=== PATIENT | male | born 1940 | race Caucasian/White ===

== ENCOUNTER 2018-08-16 10:07 | Emergency (ER) | payer MEDICARE, BC ==
[2018-08-16] MEDS: Aspirin 81 MG Tab.Chew PO ONE (10:10)
--- NOTE | 2018-08-16 11:09 | EDM.PDOC ---
ED HPI GENERAL MEDICAL PROBLEM - General Chief Complaint: Chest Pain Stated Complaint: CP Time Seen by Provider: 08/16/18 10:15 Source of Information: Reports: Patient History Limitations: Reports: No Limitations - History of Present Illness INITIAL COMMENTS - FREE TEXT/NARRATIVE: Patient presents to ER with complaints of acute chest pain. States had been working earlier this am, pulling on machinery and did fine. Was resting when developed acute chest pain. Took 2 nitro at home. Questions if he took the first one right as it didn't seem to help and he didn't have it under his tongue. Second dose helped reduce his pain from a 20 to a 2 but felt dizzy after. On presentation, pain is in the lower sternal area, but at a 2. He has a strong cardiac history. Had 3 vessel bypass several years ago, 2 stents placed 1 year ago. He denies any shortness of breath or diaphoresis. No nausea. Relates that he had a similar episode 3 weeks ago that resolved with 15 minutes of rest. Had a cardiolyte stress test done a month ago in [place] that he reports was normal. Onset: Today, Sudden Duration: Minutes: Location: Reports: Chest Quality: Reports: Sharp Severity: Severe Improves with: Reports: Medication Associated Symptoms: Reports: Chest Pain. Denies: Confusion, Cough, Fever/ Chills, Loss of Appetite, Nausea/Vomiting, Shortness of Breath, Weakness Middle Chest Pain Score (Numeric/FACES): 2 - Related Data Allergies Allergy/AdvReac Type Severity Reaction Status Date / Time No Known Allergies Allergy Verified 08/16/18 10:22 Home Meds: Home Meds Cholecalciferol (Vitamin D3) [Vitamin D3] 2,000 unit PO BID 12/15/15 [History] Levothyroxine 125 mcg PO QPM 12/15/15 [History] Lisinopril 5 mg PO QPM 12/15/15 [History] Simvastatin [Zocor] 80 mg PO QPM 12/15/15 [History] Vitamin E 400 unit PO DAILY 12/15/15 [History] Ascorbic Acid [Vitamin C] 1,000 mg PO DAILY 12/19/15 [History] Aspirin 81 mg PO DAILY 12/19/15 [History] Calcium/Magnesium/Zinc [Calcium & Magnesium plus Zinc] 1 tab PO DAILY 12/19/15 [ History] glipiZIDE [Glipizide] 5 mg PO QPM 01/03/16 [History] metFORMIN HCl [Metformin ER Osmotic] 1,000 mg PO BID 01/03/16 [History] Multivitamin [Daily Multiple Vitamin] 1 ea PO DAILY 04/29/17 [History] Clopidogrel Bisulfate [Clopidogrel] 75 mg PO DAILY 09/03/17 [History] Nitroglycerin 0.4 mg SL ASDIRECTED PRN 09/03/17 [History] Acetaminophen [Tylenol Extra Strength] 1,000 mg PO BID 08/16/18 [History] Past Medical History - Past Health History Medical/Surgical History: Denies Medical/Surgical History HEENT History: Reports: Hard of Hearing Cardiovascular History: Reports: High Cholesterol, Hypertension Other Cardiovascular History: has had some cp since his stents. He said that when he uses a broom in the [employer] shop, he has cp; sometimes it has happened at rest. usually it goes away after 5 min. He saw the electrical contacts adjuster a few weeks ago--she encouraged him to do cardiac rehab and to avoid using the broom when at the shop. Started with chest pressure, saw Dr. Lacey, had a stress test, then sent to electrical contacts adjuster. 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 Other Musculoskeletal History: has had back, knee and hip problems; had a jaw injury and said his facial area is still numb Endocrine/Metabolic History: Reports: Diabetes, Type II, Hypothyroidism - Past Surgical History Cardiovascular Surgical History: Reports: Other (See Below) Social & Family History - Tobacco Use Smoking Status *Q: Never Smoker - Caffeine Use Caffeine Use: Reports: None - Recreational Drug Use Recreational Drug Use: No ED ROS GENERAL - Review of Systems Review Of Systems: See Below Constitutional: Denies: Fever, Chills, Malaise, Weakness, Decreased Appetite HEENT: Denies: Ear Pain, Rhinitis, Sinus Problem, Throat Pain Respiratory: Denies: Shortness of Breath, Wheezing, Cough Cardiovascular: Reports: Chest Pain. Denies: Edema, Lightheadedness Endocrine: Denies: Fatigue GI/Abdominal: Denies: Abdominal Pain, Nausea, Vomiting : Reports: No Symptoms Musculoskeletal: Reports: No Symptoms Skin: Reports: No Symptoms Neurological: Reports: No Symptoms ED EXAM, GENERAL - Physical Exam Exam: See Below Exam Limited By: No Limitations General Appearance: Alert, WD/WN, No Apparent Distress Ears: Normal External Exam, Normal TMs Nose: Normal Inspection, Normal Mucosa, No Blood Throat/Mouth: Normal Inspection, Normal Oropharynx Head: Normocephalic Neck: Normal Inspection, Supple, Non-Tender Respiratory/Chest: No Respiratory Distress, Lungs Clear, Normal Breath Sounds Cardiovascular: Regular Rate, Rhythm Extremities: Normal Inspection, Normal Capillary Refill Neurological: Alert, Oriented Skin Exam: Warm, Dry Course - Vital Signs Last Recorded V/S: Last Vital Signs Temp 98.3 F 08/16/18 13:33 Pulse 65 08/16/18 13:33 Resp 16 08/16/18 13:33 BP 113/60 08/16/18 13:33 Pulse Ox 95 08/16/18 13:33 - Orders/Labs/Meds Orders: Active Orders 24 hr Category Date Time Status Oxygen Therapy, ED [RC] ASDIRECTED Care 08/16/18 10:38 Active Chest 2V [CR] Routine Exams 08/16/18 Taken Heparin Sodium/D5W [Heparin 25,000 Units in D5W 500 ML] Med 08/16/18 16:00 Active 25,000 units in 500 ml IV TITRATE Medication Orders Heparin Sodium/Dextrose (Heparin 25,000 Units In D5w 500 Ml) 25,000 units in 500 mls @ 20 mls/hr IV TITRATE ELISABET; Protocol Last Admin: 08/16/18 16:28 Dose: 1,000 units/hr, 20 mls/hr Labs: Laboratory Tests 08/16/18 08/16/18 08/16/18 Range/Units 10:20 10:20 10:20 WBC 9.0 (5.0-10.0) 10^3/uL RBC 4.63 (4.50-6.00) 10^6/uL Hgb 13.8 L (14.0-18.0) g/dL Hct 43.1 (40.0-54.0) % MCV 93.1 (82.0-94.0) fL MCH 29.8 (27.0-32.0) pg MCHC 32.0 L (33.0-38.0) g/dL RDW Coeff of Yoseph 13.6 (11.0-15.0) % Plt Count 277 (150-400) 10^3/uL Neut % (Auto) 74.1 (35-85) % Lymph % (Auto) 19.8 (10-55) % Hernando % (Auto) 5.3 (0-16) % Eos % (Auto) 0.6 (0-5) % Baso % (Auto) 0.2 (0-3) % Neut # (Auto) 6.64 (1.80-7.00) 10^3/uL Lymph # (Auto) 1.77 (1.00-4.80) 10^3/uL Hernando # (Auto) 0.47 (0.00-0.80) 10^3/uL Eos # (Auto) 0.05 (0.00-0.45) 10^3/uL Baso # (Auto) 0.02 10^3/uL PT 10.1 (9.7-12.3) SEC INR 0.98 (0.92-1.18) APTT 23.1 L (23.2-32.3) SEC Sodium 142 (136-145) mEq/L Potassium 4.6 (3.5-5.0) mEq/L Chloride 104 (98-106) mEq/L Carbon Dioxide 28 (21-32) mmol/L BUN 27 H (7-18) mg/dL Creatinine 1.4 H (0.7-1.3) mg/dL Est Cr Clr Drug Dosing 37.59 mL/min Estimated GFR (MDRD) 49 L (>=60) mL/min Glucose 216 H D (75-99) mg/dL Calcium 9.9 (8.4-10.1) mg/dL Total Bilirubin 0.5 (0.0-1.0) mg/dL AST 15 (15-37) U/L ALT 18 (12-78) U/L Alkaline Phosphatase 63 (46-116) U/L Lactate Dehydrogenase 145 (100-190) U/L Creatine Kinase 66 (35-232) U/L Troponin I 0.052 (0.00-0.06) ng/mL Total Protein 7.6 (6.4-8.2) g/dL Albumin 4.0 (3.4-5.0) g/dL 08/16/18 Range/Units 15:21 WBC (5.0-10.0) 10^3/uL RBC (4.50-6.00) 10^6/uL Hgb (14.0-18.0) g/dL Hct (40.0-54.0) % MCV (82.0-94.0) fL MCH (27.0-32.0) pg MCHC (33.0-38.0) g/dL RDW Coeff of Yoseph (11.0-15.0) % Plt Count (150-400) 10^3/uL Neut % (Auto) (35-85) % Lymph % (Auto) (10-55) % Hernando % (Auto) (0-16) % Eos % (Auto) (0-5) % Baso % (Auto) (0-3) % Neut # (Auto) (1.80-7.00) 10^3/uL Lymph # (Auto) (1.00-4.80) 10^3/uL Hernando # (Auto) (0.00-0.80) 10^3/uL Eos # (Auto) (0.00-0.45) 10^3/uL Baso # (Auto) 10^3/uL PT (9.7-12.3) SEC INR (0.92-1.18) APTT (23.2-32.3) SEC Sodium (136-145) mEq/L Potassium (3.5-5.0) mEq/L Chloride (98-106) mEq/L Carbon Dioxide (21-32) mmol/L BUN (7-18) mg/dL Creatinine (0.7-1.3) mg/dL Est Cr Clr Drug Dosing mL/min Estimated GFR (MDRD) (>=60) mL/min Glucose (75-99) mg/dL Calcium (8.4-10.1) mg/dL Total Bilirubin (0.0-1.0) mg/dL AST (15-37) U/L ALT (12-78) U/L Alkaline Phosphatase (46-116) U/L Lactate Dehydrogenase (100-190) U/L Creatine Kinase (35-232) U/L Troponin I 1.033 H (0.00-0.06) ng/mL Total Protein (6.4-8.2) g/dL Albumin (3.4-5.0) g/dL Meds: Medications Generic Name Dose Route Start Last Admin Trade Name Freq PRN Reason Stop Dose Admin Heparin Sodium/Dextrose 25,000 units in 500 mls @ 20 mls/hr 08/16/18 16:00 16:28 Heparin 25,000 Units In D5w 500 Ml IV 1,000 units/hr TITRATE ELISABET 20 mls/hr Administration Protocol 1,000 UNITS/HR Discontinued Medications Generic Name Dose Route Start Last Admin Trade Name Good PRN Reason Stop Dose Admin Aspirin 324 mg 08/16/18 10:10 08/16/18 10:10 Aspirin PO 08/16/18 10:11 324 mg ONETIME ONE Administration Heparin Sodium (Porcine) Confirm 08/16/18 16:17 08/16/18 16:30 Heparin Sodium Administered 08/16/18 16:18 Not Given Dose 5,000 units .ROUTE .STK-MED ONE Heparin Sodium (Porcine) 5,000 units 08/16/18 16:27 08/16/18 16:29 Heparin Sodium IVPUSH 08/16/18 16:28 5,000 units .BOLUS ONE Administration - Re-Assessments/Exams Free Text/Narrative Re-Assessment/Exam: 08/16/18 1100 Patient's EKG and labs essentially normal at this time. Minimal to no pain now. Will repeat cardiac enzymes at 1500. 1530- Lab results received. Troponin has increased to 1.033. Contact Dr. Montejo at [facility]. Advised to start Heparin drip. Accepted patient in transfer. Did discuss with ericka Guerra. Risks and benefits of transfer discussed with patient and family. Risks of transfer include worsening status, vehicle crash and even . Benefits of transfer include more specialized cardiac care. Risks of non transfer include worsening status and potential . Benefits of non transfer include care close to home. Patient agrees to accept patient in transfer. Departure - Departure Time of Disposition: 17:29 Disposition: DC/Tfer to Acute Hospital 02 Reason for Transfer *Q: Other Condition: Undetermined Clinical Impression: Acute myocardial infarction Forms: ED Department Discharge Additional Instructions: Transfer to Dr. Montejo at [facility] per ALS - My Orders Last 24 Hours: My Active Orders 08/16/18 Chest 2V [CR] Routine 08/16/18 10:38 Oxygen Therapy, ED [RC] ASDIRECTED 08/16/18 16:00 Heparin Sodium/D5W [Heparin 25,000 Units in D5W 500 ML] 25,000 units in 500 ml IV TITRATE - Assessment/Plan Last 24 Hours: My Active Orders 08/16/18 Chest 2V [CR] Routine 08/16/18 10:38 Oxygen Therapy, ED [RC] ASDIRECTED 08/16/18 16:00 Heparin Sodium/D5W [Heparin 25,000 Units in D5W 500 ML] 25,000 units in 500 ml IV TITRATE
[2018-08-16] MEDS: Heparin Sodium/D5W 25,000 UNITS/500 ML BAG IV SCH (16:28)
[2018-08-16] MEDS: Heparin Sodium 10,000 Units/1 ML MDV IVPUSH ONE (16:29)
[2018-08-16 17:34] VITALS: BP 123/57
--- OUTSIDE RECORDS SUMMARY | 2018-08-19 07:50 | XMSREPORT | Summary of Care ---
:[address] [facility] Address [address] [place] [address] Care Team Providers Name Role Phone Yuan Lacey MD Primary Care Provider Provider, No Attributed RESOURCE Attributed Provider Unavailable Reason for Visit Reason Comments Auth/Cert Status Reason Specialty Diagnoses / Procedures Referred By Contact Referred To Contact Encounter Details Date Type Department Care Team Description 08/16/2018 - Hospital Encounter Provider, Generic Hosp Procedure NSTEMI (non-ST 08/18/2018 CENTER 5A Brenna Brambila MD [address] [place] [address] [phone] elevated myocardial [address] Yariel Olsen MD [address] [place] [address] [phone] infarction) ([facility]) [place] [address] Allergies No Known Allergiesdocumented as of this encounter (statuses as of 08/18/2018) Medications Medication Sig Dispensed Refills Start Date End Date Status [id number] Take 1 tablet by 0 Active INC PO mouth 1 time per day levothyroxine 125 Take 125 mcg by 0 Active mcg tablet mouth 1 time per day. lisinopril Take 5 mg by 0 Active (PRINIVIL, ZESTRIL) mouth 1 time per 5 mg tablet day. vitamin C (ASCORBIC Take 250 mg by 0 Active ACID) 250 MG CHEW mouth 1 time per day vitamin D3, Take 1,000 Units 0 Active cholecalciferol, by mouth 1 time 1000 units tablet per day vitamin E 100 UNITS Take 100 Units 0 Active capsule by mouth 2 times a day metFORMIN Take 1,000 mg by 0 Active (GLUCOPHAGE XR) 500 mouth 2 times a mg extended release day tablet glipiZIDE Take 5 mg by 0 Active (GLUCOTROL) 5 mg mouth 1 time a tablet day with breakfast MISC NATURAL Arthroquill for 0 Active PRODUCTS PO joints: 1 tablet by mouth twice a day Multiple Take 1 tablet by 0 Active Vitamins-Minerals mouth 1 time per (CENTRUM ADULTS PO) day aspirin 81 mg Take 81 mg by 0 Active enteric coated mouth 1 time per tablet day acetaminophen Take 1,000 mg by 0 Active (TYLENOL) 500 mg mouth 2 times a tablet day atorvaSTATin Take 1 tablet 90 tablet 4 08/18/2018 Active (LIPITOR) 40 mg (40 mg) by mouth 0 tabletIndications: every night at NSTEMI (non-ST bedtime elevated myocardial infarction) ([facility]) metoprolol tartrate Take 1 tablet 30 tablet 1 08/18/2018 Active (LOPRESSOR) 25 mg (25 mg) by mouth 0 tabletIndications: 2 times a day NSTEMI (non-ST elevated myocardial infarction) ([facility]) ticagrelor Take 1 tablet 60 tablet 11 08/19/2018 Active (BRILINTA) 90 mg (90 mg) by mouth tabletIndications: 2 times a day NSTEMI (non-ST elevated myocardial infarction) ([facility]) nitroglycerin DISSOLVE 1 25 tablet 3 08/18/2018 Active (NITROSTAT) 0.4 mg TABLET UNDER sublingual TONGUE EVERY 5 tabletIndications: MINUTES Stented coronary NEEDED FOR CHEST artery PAIN - MAX OF 3 DOSES simvastatin (ZOCOR) Take 80 mg by 0 Discontinued 80 mg tablet mouth every 9 night at bedtime. clopidogrel Take 1 tablet 90 tablet 4 05/10/2018 Discontinued (PLAVIX) 75 mg (75 mg) by mouth 9 tabletIndications: 1 time per day Stented coronary artery nitroglycerin DISSOLVE 1 25 tablet 3 08/08/2018 Discontinued (NITROSTAT) 0.4 mg TABLET UNDER 9 sublingual TONGUE EVERY 5 tabletIndications: MINUTES Stented coronary NEEDED FOR CHEST artery PAIN - MAX OF 3 DOSES metoprolol tartrate Take 0.5 tablets 30 tablet 1 08/18/2018 Discontinued (LOPRESSOR) 25 mg (12.5 mg) by 9 tabletIndications: mouth 2 times a NSTEMI (non-ST day elevated myocardial infarction) ([facility]) documented as of this encounter (statuses as of 08/18/2018) Active Problems Problem Noted Date NSTEMI (non-ST elevated myocardial infarction) 08/18/2018 Mixed hyperlipidemia 08/11/2017 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 Diabetes type 2, controlled 12/19/2015 Otitis externa of left ear 12/19/2015 Acute respiratory failure with hypoxia 12/17/2015 Chest wall contusion 12/16/2015 Dysphagia 12/16/2015 Head injury due to trauma 12/15/2015 Osteoarthritis of both knees 08/14/2013 Arthropathy 08/14/2013 Overview: Bilateral shoulders Osteoarthritis of both knees 03/02/2013 documented as of this encounter (statuses as of 08/18/2018) Social History Tobacco Use Types Packs/Day Years Used Date Never Smoker Smokeless Tobacco: Never Used Alcohol Use Drinks/Week oz/Week Comments No Sexually Active Control Partners Comments Not Currently Sex Assigned at Date Recorded Not on file Job Start Date Occupation Industry Not on file Not on file Not on file Travel History Travel Start Travel End No recent travel history available. documented as of this encounter Last Filed Vital Signs Vital Sign Reading Time Taken Blood Pressure 132/80 08/18/2018 7:48 AM CDT Pulse 69 08/18/2018 7:48 AM CDT Temperature 36.9 C (98.5 F) 08/18/2018 7:48 AM CDT Respiratory Rate 18 08/18/2018 7:48 AM CDT Oxygen Saturation 91% 08/18/2018 7:48 AM CDT Inhaled Oxygen Concentration - - Weight 96.3 kg (212 lb 6.4 oz) 08/17/2018 12:34 AM CDT Height 162.6 cm (5' 4") 08/17/2018 12:34 AM CDT Body Mass Index 36.46 08/17/2018 12:34 AM CDT documented in this encounter Functional Status Functional Status Response Date of Assessment Is the person deaf or does he/she have serious difficulty No 08/17/2018 hearing? Is this person blind or does he/she have difficulty No 08/17/2018 seeing even when wearing glasses? Do you have difficulty with walking, balance, climbing No 08/17/2018 stairs, or had a fall in the last 3 months? Does the patient have difficulty dressing or bathing? No 08/17/2018 Because of a physical, mental, or emotional condition; No 08/17/2018 does this person have difficulty doing errands alone such as visiting a doctor's office or shopping? Cognitive Status Response Date of Assessment Because of a physical, mental, or emotional condition; No 08/17/2018 does this person have serious difficulty concentrating, remembering, or making decisions? documented as of this encounter Progress Notes Yariel Harrell MD - 08/17/2018 3:[address] [facility] Assessment/Plan: 1. Non-ST elevation [place] with history of coronary artery disease: Currently on aspirin, beta arnaldo,statin. Cardiology consulted. On heparin drip. Chest pain has resolved. Patient going for coronary angiogram today. 2. Type 2 diabetes mellitus: Continue sliding scale insulin for now. 3. Hypothyroidism: On levothyroxin 4. Dyslipidemia: On Lipitor Disposition: Possible discharge home tomorrow if procedures uneventful DVT prophylaxis: Heparin Class 2obesity Body mass index is 36.46 kg/m. Tobacco abuse: Social History Tobacco Use Smoking Status Never Smoker Smokeless Tobacco Never Used Patient chart, x-rays, EKG, labs, medications reviewed. Chief Complaint: Patient admitted to the hospital on 08/16/2018 with complaints of chest pain Subjective: No acute events reported overnight. Feels his chest pain from yesterday has resolved. ROS: Patient denies any chest pain, dyspnea, abdominal pain, nausea, vomiting, headache or dizziness. Objective: Vital signs in last 24 hours: Vitals: 08/16/18 2300 08/16/18 2331 08/17/18 0034 08/17/18 0828 BP: 145/72 140/80 Pulse: 72 65 Resp: 16 16 Temp: 98.1 F (36.7 C) 98.3 F (36.8 C) SpO2: 92% 92% Weight: 96.3 kg (212 lb 6.4 oz) 96.3 kg (212 lb 6.4 oz) Height: 1.626 m (5' 4") Weight change: Vitals Min/Max Last 24 Hours Vital Signs Min/Max (last 24 hours) Flowsheet Row Name Min Max Temp 98.1 F (36.7 C) 98.3 F (36.8 C) BP: Systolic 132 145 BP: Diastolic 72 84 Pulse 64 72 Resp 16 16 SpO2 90 % 92 % Intake and Output Last 24 Hours No intake/output data recorded. Physical Exam: General Appearance: alert, well appearing, and in no distress Mental Status: oriented to person, place, and time Chest: b/l good air entry, clear to auscultation, no wheezes, rales or rhonchi, symmetric air entry Heart: normal rate, regular rhythm, normal S1, S2, no murmur Abdomen: soft, nontender, nondistended, bowel sounds heard Neurological: normal speech, no gross sensory or motor deficits noted Extremities: No pedal edema, no tenderness Yariel Harrell MD documented in this encounter Plan of Treatment Name Priority Associated Diagnoses Date/Time EKG MARIANA 08/17/2018 6:40 AM CDT EKG STAT 08/17/2018 5:29 PM CDT EKG to be done 3 hours post Routine 08/17/2018 7:45 PM CDT coronary intervention Health Maintenance Due Date Last Done Comments Microalbumin 1940 Ophthalmology Exam 1941 Tetanus Vaccine 02/10/1960 Zoster Vaccine (1 of 2 - 02/10/1992 RZV,Shingrix) [employer] Directive 2007 document Pneumococcal 65yr+ Low/Med Risk (1 2007 of 2 - PCV13) Hemoglobin A1C Every 6 Months 06/17/2016 12/16/2015 Influenza Vaccine (#1) 2018 Lipid Screening 11/09/2018 11/09/2017 Diabetic Foot Exam 08/18/2019 08/17/2018, 08/17/2018, 08/17/2018, Additional history exists documented as of this encounter Implants Implanted Type Area Flipping Machine Operator Device Shelf Model / Identifier Expiration Serial / Lot Date Screw Ti Mtxwave 1.85x6mm N [id number] - [id number] ENT/Den N/A: J[employer]J DEPUY [id number] / Implanted: Qty: 8 on 12/15/2015 by Miguel Brown MD pawel/Luca MANDIBLE SYNTHES / Explanted: Qty: 1 on 02/10/2016 stics Stnt Xience Alpine Rx 3.5x33mm N [id number] Ea ([id number] [id number])-05/12/2017 CORONARY HONEYCUTT [id number] / Implanted: 05/12/2017 by Shawn Camacho MD (Quantity not on file) / [id number] Stnt Resolute [place] Rx 3.5x18mm N [id number] (Aka [id number])-05/12/2017 CORONARY MEDTRONIC [id number] / Implanted: 05/12/2017 by Shawn Camacho MD (Quantity not on file) / [id number] documented as of this encounter Procedures Procedure Name Priority Date/Time Associated Comments Diagnosis COMPLETE BLOOD COUNT Routine 08/18/2018 7:38 Results for this WITHOUT DIFFERENTIAL AM CDT procedure are in the results section. BASIC METABOLIC Routine 08/18/2018 7:38 Results for this PANEL AM CDT procedure are in the results section. GLUCOSE BY METER, Routine 08/18/2018 6:31 Results for this POCT AM CDT procedure are in the results section. GLUCOSE BY METER, Routine 08/17/2018 9:23 Results for this POCT PM CDT procedure are in the results section. GLUCOSE BY METER, Routine 08/17/2018 5:38 Results for this POCT PM CDT procedure are in the results section. ACTIVATED CLOTTING Routine 08/17/2018 4:44 Results for this TIME POCT PM CDT procedure are in the results section. CARDIAC CATH Routine 08/17/2018 4:25 Results for this POSSIBLE ANGIOPLASTY PM CDT procedure are in [employer]PER[employer] the results section. PTT Timed Routine 08/17/2018 1:07 Results for this PM CDT procedure are in the results section. GLUCOSE BY METER, Routine 08/17/2018 11:48 Results for this POCT AM CDT procedure are in the results section. ECHO ADULT COMPLETE Routine 08/17/2018 7:29 Results for this AM CDT procedure are in the results section. GLUCOSE BY METER, Routine 08/17/2018 6:36 Results for this POCT AM CDT procedure are in the results section. PTT Routine 08/17/2018 6:30 Results for this AM CDT procedure are in the results section. TROPONIN I Timed Routine 08/17/2018 4:22 Results for this AM CDT procedure are in the results section. LAB ONLY-COMPLETE Routine 08/16/2018 10:35 Results for this BLOOD COUNT WITH PM CDT procedure are in DIFFERENTIAL the results section. PTT MARIANA 08/16/2018 10:35 Results for this PM CDT procedure are in the results section. TROPONIN I Timed Routine 08/16/2018 10:35 Results for this PM CDT procedure are in the results section. HEPATIC FUNCTION Routine 08/16/2018 10:35 Results for this PANEL PM CDT procedure are in the results section. MAGNESIUM Routine 08/16/2018 10:35 Results for this PM CDT procedure are in the results section. RENAL FUNCTION PANEL Routine 08/16/2018 10:35 Results for this PM CDT procedure are in the results section. COMPLETE BLOOD COUNT Routine 08/16/2018 10:35 Results for this WITH DIFFERENTIAL PM CDT procedure are in the results section. BRAIN NATRIURETIC Routine 08/16/2018 10:35 Results for this PEPTIDE PM CDT procedure are in the results section. documented in this encounter Results BASIC METABOLIC PANEL (08/18/2018 7:38 AM CDT) Glucose 153 (H) 70 - 100 mg/dL [address] BUN 21 6 - 22 mg/dL [address] Creatinine 1.10 0.80 - 1.30 mg/dL [address] BUN/Creatinine Ratio 19.1 10.0 - 25.[address] Sodium 137 135 - 145 meq/L [address] Potassium 4.4 3.5 - 5.3 meq/L [address] Chloride 102 99 - 110 meq/L [place] [id number] CLINIC CO2 24 20 - 29 meq/L [address] Anion Gap with K 15 6 - 20 meq/L [address] Calcium 10.0 8.5 - 10.5 mg/dL [address] Age [address] eGFR Non- 65 >=60 mL/min/1.73m2 [address] eGFR 79 >=60 mL/min/1.73m2 [address] Specimen Blood - Blood Performing Organization Address [facility] Phone Number [address] [place] [phone] COMPLETE BLOOD COUNT WITHOUT DIFFERENTIAL (08/18/2018 7:38 AM CDT) WBC 7.7 4.0 - 11.0 K/uL [address] RBC 4.66 4.40 - 5.80 M/uL [address] Hemoglobin 13.5 13.5 - 17.5 g/dL [address] Hematocrit 42.5 40.0 - 50.0 % [address] MCV 91.2 80.0 - 98.[address] MCH 29.0 25.5 - 34.[address] MCHC 31.8 31.5 - 36.5 g/dL [address] RDW-CV 13.5 11.5 - 15.5 % [address] RDW-SD 44.5 35.5 - 50.[address] Platelet Count 261 140 - 400 K/uL [address] MPV 10.1 8.5 - 12.[address] Specimen Blood - Blood Performing Organization Address [facility] Phone Number [address] [place] [phone] GLUCOSE BY METER, POCT (08/18/2018 6:31 AM CDT)Only the most recent of5 resultswithin the time period is included. Glucose POC 139 (H) 70 - 100 mg/dL [facility] POINT OF CARE TESTING Specimen Blood - Blood Performing Organization Address [facility] Phone Number [facility] POINT OF [address] [place] [phone] CARE TESTING ACTIVATED CLOTTING TIME POCT (08/17/2018 4:44 PM CDT) Activated Clotting Time 197 (H) 100 - 150 Secs [facility] POINT OF CARE TESTING Specimen Blood - Blood Narrative Performed At DEVICE: [id number] [facility] POINT OF CARE TESTING Performing Organization Address City/State/Zipcode Phone Number [facility] POINT OF [address] [place] [address] CARE TESTING Cardiac Cath Possible Angioplasty Stent Filenet Architect - Left; With grafts? Yes (08/17 4:25 PM CDT) Narrative Performed At [facility] Patient: GERARD RODRÍGUEZ [facility] Exam Date:[address] S[address]am Time: 04:25 PM-04:43 PM [place] [address] Department of Interventional Cardiology Cardiac Interventional Report, Diagnostic Heart Catheterization Report : 1940Fluoro Time: 9.1 min. Patient Status:InpatientAge: 78 year(s)Cath Status: Patient Room:[facility] Gender: Male Diagnostic Certifed Refrigeration Operator:MARY MEDRANO MD Extrusion Die Repairer:MARY MEDRANO MD Indication:Angina/ND: myocardial infarction without ST elevation (NSTEMI). Diagnostic Conclusions: - There is significant left main plus triple vessel coronary artery disease Interventional Conclusions: - A successful intervention of the [id number] was performed Interventional Summary SVG graft to First obtuse marginal: A successful Balloon angioplasty was performed, and a NC EUPHORA RX 4.0X20. Procedures Performed: Fluoro 0.1-60 Minutes. Medication/Infusion/Drip. Art Access - R femoral artery* . Selective Lt Coronary Angiography. Selective Rt Coronary Angiography. Selective Saphenous Vein Graft Angio. Selective KRISHNAN Angio. PTCA. Margarita Femoral Artery Injected for Closure Place. Filter Wire. Hemostasis w/ Angioseal. Diagnostic Findings: Coronary Angiography Left Main Left main artery: The segment is large. Distal left main: There is a 90 % stenosis. Left Anterior Descending Left anterior descending artery: The segment is large. The vessel segment is supplied by a patent bypass. There is a 100 % stenosis. Circumflex Circumflex artery: The segment is large. The vessel segment is supplied by a patent bypass. There is a 100 % stenosis. Right Coronary Right coronary artery: The segment is large. The vessel segment is supplied by collaterals. Ostial right coronary artery: There is a 90 % stenosis. Distal right coronary artery: There is a 100 % stenosis. Graft Angiography KRISHNAN graft to Mid left anterior descending: The segment is normal sized, not calcified and not tortuous. Angiography shows patency. SVG graft to First obtuse marginal: The segment is normal sized, not calcified and not tortuous. There is a 70 % in-stent restenosis in the middle 1/3 portion of the segment. SVG graft to Right coronary artery: The segment is normal sized, not calcified and not tortuous. Angiography shows total occlusion. Left Heart Cath Ejection fraction was not calculated. Interventional Findings: Interventional Details SVG graft to First obtuse marginal: A successful Balloon angioplasty was performed using a CATH GUIDE 6FR LAUNCHER JR4.0 during setup, a FILTERWIRE EZ SYSTEM 190CM during setup, and a NC EUPHORA RX 4.0X20 During Procedure. - The inflation pressure was 20 priyanka for the duration of 9.0 seconds. - The inflation pressure was 20 priyanka for the duration of 6.0 seconds. - The inflation pressure was 24 priyanka for the duration of 7.0 seconds. - The inflation pressure was 24 priyanka for the duration of 7.0 seconds. Procedure Narrative: Access Right femoral artery: The puncture site was infiltrated with 9.0 ml of 1% Lidocaine. Vascular access was obtained using modified seldinger technique and a 5F MICROPUNCTURE SET 45-754 was advanced into the vessel. The sheath was exchanged from a 5F MICROPUNCTURE SET 45-754 sheath to a GLIDESHEATH PNCLE TIF TIP 6FR sheath. Hemostasis/Sheath Status: Hemostasis was successful using a sealant (ANGIO- SEAL VASCULAR CLOSURE DEVICE 6F ). Coronary Angiography Left Coronary System: A catheter was positioned into the Vessel Ostium under fluoroscopic guidance. Contrast injections were performed using hand injection. Angiograms were obtained in multiple views. Right Coronary System: A catheter was positioned into the Vessel Ostium under fluoroscopic guidance. Contrast injections were performed using hand injection. Angiograms were obtained in multiple views. Graft Angiography KRISHNAN graft to Mid left anterior descending: A catheter was positioned into the Vessel Origin under fluoroscopic guidance. Contrast injections were performed using hand injection. Angiograms were obtained in multiple views. SVG graft to First obtuse marginal: Contrast injections were performed using hand injection. Angiograms were obtained in multiple views. SVG graft to Right coronary artery: A catheter was positioned into the Vessel Origin under fluoroscopic guidance. Contrast injections were performed using hand injection. Angiograms were obtained in multiple views. Hemodynamic Impressions General Impressions: Hemodynamic assessment demonstrates Mild systemic hypertension, Left ventricular end diastolic pressure is mildly elevated. Hemodynamic Findings Pressures: Baseline: LVpressure 147mmHg, EDP 16.Baseline: AO pressure 150/72mmHg, mean 98. Hemodynamic Pressures-Phase: Baseline Location : LV Pressure s : 147 mmHg Pressure ed : 16 mmHg HR : 54 bpm Hemodynamic Pressures-Phase: Baseline Location : Ao Pressure s : 150 mmHg Pressure d : 72 mmHg Pressure m : 98 mmHg HR : 66 bpm Acute complication: No complications Contrast: Description DoseUnit HIS No. Reference No. Serial No. Lot No. Omnipaque 90.000 ml [id number] Ordering Physician:BRIDGET SOLANO OCCUPATIONAL MEDICINE PHYSICIAN CCL Teachers Assistant:OPAL BUCKNER RN Scrub: KARTIK JUAREZ CVT Monitor: GIA YORK Barrel Rifler: MARIA ELENA CERVANTES RT(R) Monitor: MANDA MCCLURE TUFTER HAND Diagnostic Physician Signature: (No Signature Object) Interventional Physician Signature: (No Signature Object) Pre - Post - Procedure Note Interface, Inc Results No Pull Forward - 08/18/2018 10:43 AM CDT Patient: GERARD RODRÍGUEZ [facility] Exam Date: 08/17/[address] Exam Time: 04:25 PM-04:43 PM [place] [id number] Department of Interventional Cardiology Cardiac Interventional Report, Diagnostic Heart Catheterization Report : 1940 Fluoro Time: 9.1 min. Patient Status: Inpatient Age: 78 year(s) Cath Status: Patient Room: [facility] Gender: Male Diagnostic Certifed Refrigeration Operator: MARY MEDRANO MD Extrusion Die Repairer: MARY MEDRANO MD Indication: Angina/ND: myocardial infarction without ST elevation (NSTEMI). Diagnostic Conclusions: - There is significant left main plus triple vessel coronary artery disease Interventional Conclusions: - A successful intervention of the [id number] was performed Interventional Summary SVG graft to First obtuse marginal: A successful Balloon angioplasty was performed, and a NC EUPHORA RX 4.0X20. Procedures Performed: Fluoro 0.1-60 Minutes. Medication/Infusion/Drip. Art Access - R femoral artery* . Selective Lt Coronary Angiography. Selective Rt Coronary Angiography. Selective Saphenous Vein Graft Angio. Selective KRISHNAN Angio. PTCA. Margarita Femoral Artery Injected for Closure Place. Filter Wire. Hemostasis w/ Angioseal. Diagnostic Findings: Coronary Angiography Left Main Left main artery: The segment is large. Distal left main: There is a 90 % stenosis. Left Anterior Descending Left anterior descending artery: The segment is large. The vessel segment is supplied by a patent bypass. There is a 100 % stenosis. Circumflex Circumflex artery: The segment is large. The vessel segment is supplied by a patent bypass. There is a 100 % stenosis. Right Coronary Right coronary artery: The segment is large. The vessel segment is supplied by collaterals. Ostial right coronary artery: There is a 90 % stenosis. Distal right coronary artery: There is a 100 % stenosis. Graft Angiography KRISHNAN graft to Mid left anterior descending: The segment is normal sized, not calcified and not tortuous. Angiography shows patency. SVG graft to First obtuse marginal: The segment is normal sized, not calcified and not tortuous. There is a 70 % in-stent restenosis in the middle 1/3 portion of the segment. SVG graft to Right coronary artery: The segment is normal sized, not calcified and not tortuous. Angiography shows total occlusion. Left Heart Cath Ejection fraction was not calculated. Interventional Findings: Interventional Details SVG graft to First obtuse marginal: A successful Balloon angioplasty was performed using a CATH GUIDE 6FR LAUNCHER JR4.0 during setup, a FILTERWIRE EZ SYSTEM 190CM during setup, and a NC EUPHORA RX 4.0X20 During Procedure. - The inflation pressure was 20 priyanka for the duration of 9.0 seconds. - The inflation pressure was 20 priyanka for the duration of 6.0 seconds. - The inflation pressure was 24 priyanka for the duration of 7.0 seconds. - The inflation pressure was 24 priyanka for the duration of 7.0 seconds. Procedure Narrative: Access Right femoral artery: The puncture site was infiltrated with 9.0 ml of 1% Lidocaine. Vascular access was obtained using modified seldinger technique and a 5F MICROPUNCTURE SET 45-754 was advanced into the vessel. The sheath was exchanged from a 5F MICROPUNCTURE SET 45-754 sheath to a GLIDESHEATH PNCLE TIF TIP 6FR sheath. Hemostasis/Sheath Status: Hemostasis was successful using a sealant (ANGIO- SEAL VASCULAR CLOSURE DEVICE 6F ). Coronary Angiography Left Coronary System: A catheter was positioned into the Vessel Ostium under fluoroscopic guidance. Contrast injections were performed using hand injection. Angiograms were obtained in multiple views. Right Coronary System: A catheter was positioned into the Vessel Ostium under fluoroscopic guidance. Contrast injections were performed using hand injection. Angiograms were obtained in multiple views. Graft Angiography KRISHNAN graft to Mid left anterior descending: A catheter was positioned into the Vessel Origin under fluoroscopic guidance. Contrast injections were performed using hand injection. Angiograms were obtained in multiple views. SVG graft to First obtuse marginal: Contrast injections were performed using hand injection. Angiograms were obtained in multiple views. SVG graft to Right coronary artery: A catheter was positioned into the Vessel Origin under fluoroscopic guidance. Contrast injections were performed using hand injection. Angiograms were obtained in multiple views. Hemodynamic Impressions General Impressions: Hemodynamic assessment demonstrates Mild systemic hypertension, Left ventricular end diastolic pressure is mildly elevated. Hemodynamic Findings Pressures: Baseline: LV pressure 147mmHg, EDP 16. Baseline: AO pressure 150/ 72mmHg, mean 98. Hemodynamic Pressures-Phase: Baseline Location : LV Pressure s : 147 mmHg Pressure ed : 16 mmHg HR : 54 bpm Hemodynamic Pressures-Phase: Baseline Location : Ao Pressure s : 150 mmHg Pressure d : 72 mmHg Pressure m : 98 mmHg HR : 66 bpm Acute complication: No complications Contrast: Description Dose Unit HIS No. Reference No. Serial No. Lot No. Omnipaque 90.000 ml C34 C34 Ordering Physician: BRIDGET SOLANO OCCUPATIONAL MEDICINE PHYSICIAN CCL Teachers Assistant: OPAL BUCKNER RN Scrub: JOIE PTAIÑO Monitor: GIA YORK Barrel Rifler: RT ROSELINE(R) Monitor: MANDA MCCLURE TUFTER HAND Diagnostic Physician Signature: (No Signature Object) Interventional Physician Signature: (No Signature Object) Pre - Post - Performing Organization Address City/[facility] Phone Number [facility], [place] PTT (08/17/2018 1:07 PM CDT)Only the most recent of3 resultswithin the time period is included. APTT >150 (HH) 24 - [address] Specimen Blood - Blood Performing Organization Address [facility] Phone Number [place] [address] [place] [address] ECHO ADULT COMPLETE (08/17/2018 7:29 AM CDT) Narrative Performed At [facility] Patient: GERARD RODRÍGUEZ MR#: [id number] Exam Date: 08/17/2018 [facility] [address] Transthoracic Echocardiogram [id number] : 145/72 mmHg HR:66 bpm : 1940Exam Location: Bedside Height:64.00 "( 162.6 cm) Age: 78 year(s)[facility] kg) Gender:MalePatient Status: Inpatient BSA: 2.01 m2 Porcelain Waxer: MARU APRKER Reading Physician: BELEN PAPPAS DO Ordering Physician:BRENNA BRAMBILA Procedure Indication(s):Chest Pain, Elevated troponin Examination:TTE Complete 2D(m-mode) , Complete Spectral Doppler, Color Doppler Conclusions Left Ventricle: Mildly reduced left ventricular systolic function. The ejection fraction is visually estimated to be 45 %. The basal inferior, basal inferolateral, mid inferior and mid inferolateral wall segments are hypokinetic. Left Atrium: Iokk-jv-pnfjbjmuum dilated left atrium. Mitral Valve: Mild mitral regurgitation. Right Ventricle: Normal right ventricular size. Normal right ventricular systolic function. Comparison Study Comparison Date: 05/12/2017 Comparison Study: Transthoracic Echocardiogram There was no significant change from prior echo Findings Left Ventricle: Normal left ventricular size. Mildly increased left ventricular wall thickness. Mildly reduced left ventricular systolic function. The ejection fraction is visually estimated to be 45 %. The basal inferior, basal inferolateral, mid inferior and mid inferolateral wall segments are hypokinetic. Indeterminate diastolic function. Left Atrium: Azsf-ee-unveycqymk dilated left atrium. Aortic Valve: Tricuspid aortic valve with normal function. Trivial aortic regurgitation. No aortic stenosis. Aorta: The sinus of valsalva is normal in size measuring 38.[address] junction is normal in size measuring 29.5 mm. The ascending aorta is normal in size measuring 34.0 mm. Mitral Valve: Normal mitral valve structure. Mild mitral regurgitation. No mitral stenosis. IAS: No gross evidence of shunt flow seen; however the possibility of a PFO cannot be completely ruled out. Right Ventricle: Normal right ventricular size. Normal right ventricular systolic function. Normal right ventricular wall thickness. Pulmonary Artery: The tricuspid jet envelope definition is inadequate for estimation of RV systolic pressure. Right Atrium: Normal right atrial size. Tricuspid Valve: Normal tricuspid valve structure. No significant tricuspid regurgitation. Pulmonic Valve: Normal pulmonary valve structure. No significant pulmonary regurgitation. No pulmonary stenosis. IVC: Normal IVC size with normal respirophasic changes. Pericardium: No significant pericardial effusion. No pleural effusion. Measurements Left Ventricle Aortic Valve Label ValueNormal Value Label Value Normal Value LVDd, 2D56.9 mm LVOT Vmax 58 cm/s LVDs, 2D49.2 mm AV Vmax 85 cm/s IVSd, 2D12.6 mm LVOTd 23 mm LVPWd, 2D 9 mm LVOT VTI11.9 cm FS, 2D14 % LVOT PGmax1 mmHg Cardiac Output3.23 L/min AV Vmean66 cm/s Cardiac Index 1.61 AV VTI20.1 cm L/min/m-sqAV PGmax 3 mmHg Left Atrium AV PGmean 2 mmHg Label ValueNormal Value GILMAR (Vmax)2.8 cm-sq LADs Long.59 mm AV Vmax, Yjvvrme50 cm/s LA Volume Index 43 ml/m-sq Aorta Label ValueNormal Value Ao Mlgmcjxqamc75.5 mm Ao Asc34 mm Ao Sinus, 2D38 mm Great Vessels Label ValueNormal Value PVein S 47 cm/s PVein D 63 cm/s S/D Ratio 0.8 Heart Rate Label ValueNormal Value Heart Rate66 bpm (No Signature Object) Wall Motion Scores -1 - Not Scored, 0 - Unknown, 1 - Normal or hyperkinesia,2 - Hypokinesia, 3 - Akinesia, 4 - Dyskinesia, 5 - Aneurysm Procedure Note Interface, Inc Results No Pull Forward - 08/17/2018 9:01 AM CDT Patient: GERARD RODRÍGUEZ MR#: [id number] Exam Date: 08/17/2018 [facility] [address] Transthoracic Echocardiogram [place] [id number] BP: 145/72 mmHg HR: 66 bpm : 1940 Exam Location: Bedside Height: 64.00 "(162.6 cm) Age: 78 year(s) Patient [facility]: [facility] Weight: 212 lbs.(96.16 kg) Gender: Male Patient Status: Inpatient BSA: 2.01 m2 Porcelain Waxer: MARU PARKER Reading Physician: BELEN PAPPAS DO Ordering Physician: BRENNA BRAMBILA Procedure Indication(s): Chest Pain, Elevated troponin Examination: TTE Complete 2D(m-mode), Complete Spectral Doppler, Color Doppler Conclusions Left Ventricle: Mildly reduced left ventricular systolic function. The ejection fraction is visually estimated to be 45 %. The basal inferior, basal inferolateral, mid inferior and mid inferolateral wall segments are hypokinetic. Left Atrium: Driw-bi-arcouuqpgn dilated left atrium. Mitral Valve: Mild mitral regurgitation. Right Ventricle: Normal right ventricular size. Normal right ventricular systolic function. Comparison Study Comparison Date: 05/12/2017 Comparison Study: Transthoracic Echocardiogram There was no significant change from prior echo Findings Left Ventricle: Normal left ventricular size. Mildly increased left ventricular wall thickness. Mildly reduced left ventricular systolic function. The ejection fraction is visually estimated to be 45 %. The basal inferior, basal inferolateral, mid inferior and mid inferolateral wall segments are hypokinetic. Indeterminate diastolic function. Left Atrium: Upzc-as-tmkxxzmrqg dilated left atrium. Aortic Valve: Tricuspid aortic valve with normal function. Trivial aortic regurgitation. No aortic stenosis. Aorta: The sinus of valsalva is normal in size measuring 38.[address] junction is normal in size measuring 29.5 mm. The ascending aorta is normal in size measuring 34.0 mm. Mitral Valve: Normal mitral valve structure. Mild mitral regurgitation. No mitral stenosis. IAS: No gross evidence of shunt flow seen; however the possibility of a PFO cannot be completely ruled out. Right Ventricle: Normal right ventricular size. Normal right ventricular systolic function. Normal right ventricular wall thickness. Pulmonary Artery: The tricuspid jet envelope definition is inadequate for estimation of RV systolic pressure. Right Atrium: Normal right atrial size. Tricuspid Valve: Normal tricuspid valve structure. No significant tricuspid regurgitation. Pulmonic Valve: Normal pulmonary valve structure. No significant pulmonary regurgitation. No pulmonary stenosis. IVC: Normal IVC size with normal respirophasic changes. Pericardium: No significant pericardial effusion. No pleural effusion. Measurements Left Ventricle Aortic Valve Label Value Normal Value Label Value Normal Value LVDd, 2D 56.9 mm LVOT Vmax 58 cm/s LVDs, 2D 49.2 mm AV Vmax 85 cm/s IVSd, 2D 12.6 mm LVOTd 23 mm LVPWd, 2D 9 mm LVOT VTI 11.9 cm FS, 2D 14 % LVOT PGmax 1 mmHg Cardiac Output 3.23 L/min AV Vmean 66 cm/s Cardiac Index 1.61 AV VTI 20.1 cm L/min/m-sq AV PGmax 3 mmHg Left Atrium AV PGmean 2 mmHg Label Value Normal Value GILMAR (Vmax) 2.8 cm-sq LADs Long. 59 mm AV Vmax, Caliper 85 cm/s LA Volume Index 43 ml/m-sq Aorta Label Value Normal Value Ao Sinotubular 29.5 mm Ao Asc 34 mm Ao Sinus, 2D 38 mm Great Vessels Label Value Normal Value PVein S 47 cm/s PVein D 63 cm/s S/D Ratio 0.8 Heart Rate Label Value Normal Value Heart Rate 66 bpm (No Signature Object) Wall Motion Scores -1 - Not Scored, 0 - Unknown, 1 - Normal or hyperkinesia, 2 - Hypokinesia, 3 - Akinesia, 4 - Dyskinesia, 5 - Aneurysm Performing Organization Address [facility] [place] [facility] Phone Number [facility] [place], [place] TROPONIN I (08/17/2018 4:22 AM CDT)Only the most recent of2 resultswithin the time period is included. Troponin I 0.725 (H) 0.000 - 0.028 ng/mL [facility] Specimen Blood - Blood Performing Organization Address [facility] [place] [facility] Phone Number [facility] [address] [place] [address] HEPATIC FUNCTION PANEL (08/16/2018 10:35 PM CDT) Alkaline Phosphatase 49 30 - 150 U/L [address] AST - SGOT 18 0 - 35 U/L [address] ALT - SGPT 13 0 - 55 U/L [address] Bilirubin Total 0.3 0.2 - 1.2 mg/dL [address] Bilirubin Indirect 0.2 0.0 - 0.8 mg/dL [address] Bilirubin Direct 0.1 0.0 - 0.4 mg/dL [address] Albumin 3.9 3.5 - 5.0 g/dL [address] Protein Total 6.5 6.0 - 8.2 g/dL [address] Specimen Blood - Blood Performing Organization Address City/State/Zipcode Phone Number [address] [place] [address] LAB ONLY-COMPLETE BLOOD COUNT WITH DIFFERENTIAL (08/16/2018 10:35 PM CDT) WBC 8.1 4.0 - 11.0 K/uL [address] RBC 4.20 (L) 4.40 - 5.80 M/uL [address] Hemoglobin 12.5 (L) 13.5 - 17.5 g/dL [address] Hematocrit 38.5 (L) 40.0 - 50.0 % [address] MCV 91.7 80.0 - 98.[address] MCH 29.8 25.5 - 34.[address] MCHC 32.5 31.5 - 36.5 g/dL [address] RDW-CV 13.4 11.5 - 15.5 % [address] RDW-SD 45.0 35.5 - 50.[address] Platelet Count 253 140 - 400 K/uL [address] MPV 10.1 8.5 - 12.[address] Seg Neut Absolute 4.5 1.8 - 8.0 K/uL [address] Lymphocytes Absolute 2.8 0.8 - 4.1 K/uL [address] Monocytes Absolute 0.6 0.0 - 1.0 K/uL [address] Eosinophils Absolute 0.1 0.0 - 0.7 K/uL [address] Basophil Absolute 0.0 0.0 - 0.2 K/uL [address] Immature Granulocyte Absolute 0.02 0.00 - 0.06 K/uL [address] Neutrophils Abs. (Segs and Bands) 4,500 /uL [address] Neutrophils Percent 55.9 % [address] Lymphocytes Percent 35.3 % [address] Monocytes Percent 7.3 % [address] Immature Granulocyte Percent 0.2 % [address] Eosinophils Percent 1.1 % [address] Basophil Percent 0.4 % [address] Nucleated RBC 0 /[address] Specimen Blood - Blood Performing Organization Address [facility] [place] [facility] Phone Number [address] [address] BRAIN NATRIURETIC PEPTIDE (08/16/2018 10:35 PM CDT) BNP 142 (H) 0 - 100 pg/mL [address] Specimen Blood - Blood Performing Organization Address [facility] [place] [facility] Phone Number [address] [address] MAGNESIUM (08/16/2018 10:35 PM CDT) Magnesium 1.8 1.8 - 2.4 mg/dL [address] Specimen Blood - Blood Performing Organization Address [facility] Phone Number [address] [address] RENAL FUNCTION PANEL (08/16/2018 10:35 PM CDT) Glucose 134 (H) 70 - 100 mg/dL [address] BUN 28 (H) 6 - 22 mg/dL [address] Creatinine 1.08 0.80 - 1.30 mg/dL [address] BUN/Creatinine Ratio 25.9 (H) 10.0 - 25.[address] Sodium 139 135 - 145 meq/L [address] Potassium 4.2 3.5 - 5.3 meq/L [address] Chloride 107 99 - 110 meq/L [address] CO2 22 20 - 29 meq/L [address] Anion Gap with K 14 6 - 20 meq/L [address] Calcium 9.6 8.5 - 10.5 mg/dL [address] Phosphorus 3.4 2.5 - 4.5 mg/dL [address] Albumin 3.9 3.5 - 5.0 g/dL [address] Corrected Calcium 9.7 8.5 - 10.5 mg/dL [address] Age [address] eGFR Non- 66 >=60 mL/min/1.73m2 [address] eGFR 81 >=60 mL/min/1.73m2 [address] Specimen Blood - Blood Performing Organization Address City/State/Zipcode Phone Number [address] [address] documented in this encounter Visit Diagnoses Diagnosis Non-ST elevation [place] (NSTEMI) ([facility]) - Primary Acute myocardial infarction, unspecified site, episode of care unspecified NSTEMI (non-ST elevated myocardial infarction) (HCC) Acute myocardial infarction, subendocardial infarction, episode of care unspecified Stented coronary artery Postsurgical percutaneous transluminal coronary angioplasty status documented in this encounter Administered Medications Medication Order MAR Action Action Date Dose Rate Site acetaminophen (TYLENOL) tablet 650 mg 650 mg, Oral, Every four hours prn, Starting Wed08/17/18 at 1707, Until Discontinued, mild pain, Post-Procedure (Cath), Pain Scale 1 - 3, aspirin chewable tablet 81 mg Given 08/18/2018 7:51 AM CDT 81 mg 81 mg, Oral, Daily, First dose on Wed08/18/18 at 0900, Until Discontinued, Post-Procedure (Cath) atorvaSTATin (LIPITOR) tablet 40 mg Given 08/17/2018 7:57 PM CDT 40 mg 40 mg, Oral, Bedtime, First dose on Wed08/17/18 at 2100, Until Discontinued carbohydrate 15 g 15 g, Oral, PRN per parameter, Starting Wed08/16/18 at 2240, Until Discontinued , low blood glucose, Give 15 grams of carbohydrate if blood glucose is less than 70 mg/dL, patient is responsive and able to take food or oral meds. Recheck blood glucose in 15 minutes. Repeat 1 time and call MD. If recheck is greater than 70 mg/dL and able to take food or oral meds, give 15 gram carbohydrate if meal or snack due in more than an hour. Serve meal or snack if due in less than 1 hour. See hypoglycemia treatment on cardex. Sources of 15 grams carbohydrate: a.4 oz of fruit juice or b.4 oz of soda pop (NOT diet) or c.1 tablespoon of honey, dextrose 50% IV solution 50 mL 50 mL (25 g), IV, PRN per parameter, Starting Wed08/16/18 at 2240, Until Discontinued, low blood glucose, 50 mL, Give if blood glucose is less than 70 mg/dL, patient is unresponsive or NPO, and has IV access. Recheck blood glucose in 15 minutes and call MD. Repeat dose if recheck less than 70 mg/dL and call MD. If recheck is greater than 70 mg/dL and able to take food or oral meds, give 15 gram carbohydrate if meal or snack due in more than an hour. Serve meal or snack if due in less than 1 hour. See hypoglycemia treatment on cardex., dextrose chewable tablet 16 g 16 g (4 tablet), Oral, PRN per parameter, Starting Wed08/16/18 at 2240, Until Discontinued, low blood glucose, Chew before swallowing. Give 15 gram of carbohydrate if blood glucose is less than 70 mg/dL, patient is responsive and able to take food or oral meds. Recheck blood glucose in 15 minutes. Repeat 15 gram carbohydrate if recheck is less than 70 mg/dL and call MD. If recheck is greater than 70 mg/dL and able to take food or oral meds, give 15 gram carbohydrate if meal or snack due in more than an hour. Serve meal or snack if due in less than 1 hour. See hypoglycemia treatment on cardex. (Sources of 15 gram carbohydrate: 4 oz fruit juice or 4 oz soda pop (NOT diet) or 1 tablespoonful honey or 4 glucose tablets )., glucagon for injection 1 mg vial 1 mg 1 mg, Intramuscular, PRN per parameter, Starting Wed08/16/18 at 2240, Until Discontinued, low blood glucose, Give if blood glucose less than 70 mg/dL, patient is unresponsive or NPO, and has no IV access. Establish IV access. Recheck blood glucose in 15 minutes and call MD. If recheck is greater than 70 mg/dL and able to take food or oral meds, give 15 gram carbohydrate if meal or snack due in more than an hour. Serve meals or snack if due in less than 1 hour. See hypoglycemia treatment on cardex. Reconstitute vial with 1 mL of sterile water for injection for reconstitution for a final concentration of 1 mg/mL. Shake vial gently. Use immediately and discard unused portion. Reconstitute with 1 mL of sterile water for injection to yield 1 mg/mL. Shake vial gently. Use immediately and discard unused portion., insulin aspart (NovoLOG) SQ correction Given 08/17/2018 1:09 PM CDT 2 Units scale (Adult) 2-8 Units, Subcutaneous, Three times a day, First dose on Wed08/17/18 at 1225, Until Discontinued, 0.08 mL, Patient is NPO LOW DOSE insulin aspart (NovoLOG) subcutaneous correction scale Blood Glucose=Insulin Dose 150-199 2 units 200-249 3 units 250-299 5 units 300-349 7 units Over 349 8 units, levothyroxine tablet 125 mcg Given 08/18/2018 5:43 AM CDT 125 mcg 125 mcg, Oral, DAILY, First dose on Wed08/17/18 at 0740, Until Discontinued lidocaine 1%-EPINEPHrine 1:200,000 (XYLOCAINE-EPINEPHRINE) injection solution 1 mL 1 mL, Subcutaneous, PRN per parameter, Starting Wed08/17/18 at 1707, Until Discontinued, other (Specify), oozing at groin puncture site, 30 mL, Post- Procedure (Cath), Contact physician/YANELIS prior to injecting. If oozing at groin puncture site occurs, designated nursing staff may assess and inject. Clean site with Hibiclens sponge. Using aseptic technique, inject 1 mL into the tissue surrounding the tract of the groin puncture site in a circular fashion to a max dose of 10 mL. Aspirate prior to each injection., lisinopril (PRINIVIL, ZESTRIL) tablet 5 mg Given 08/18/2018 7:51 AM CDT 5 mg 5 mg, Oral, DAILY, First dose on Wed08/17/18 at 0900, Until Discontinued, Hold for SBP less than 100, metoprolol tartrate (LOPRESSOR) tablet 25 mg 25 mg, Oral, Two times a day, First dose on Wed08/18/18 at 2100, Until Discontinued, Hold for SBP less than 90 Hold for HR less than 60, nitroglycerin (NITROSTAT) sublingual tablet 0.4 mg 0.4 mg, Sublingual, Every five minutes prn, Starting Wed08/17/18 at 1707, Until Discontinued, chest pain, Post-Procedure (Cath), At onset of chest pain, dissolve one tablet under tongue. May repeat every 5 minutes for 3 doses. Do not crush or chew., ondansetron (ZOFRAN ODT) dispersible tablet 4 mg 4 mg, Oral, Every four hours prn, Starting Wed08/16/18 at 2204, Until Discontinued, nausea, vomiting, Use FIRST. If ineffective after 30 minutes use ondansetron IV , ondansetron (ZOFRAN) injection solution 4 mg 4 mg, IV, Every four hours prn, Starting Wed08/16/18 at 2204, Until Discontinued, nausea, vomiting, 2 mL, Use SECOND. If ineffective after 30 minutes and ondansetron ODT used, call physician for alternative. If preference is to further dilute for IV administration: First draw up patient-specific dose, then dilute to 10 mL with 0.9% sodium chloride., sodium chloride 0.9% flush (adult) 10 mL Given 08/18/2018 7:52 AM CDT 10 mL 10 mL, IV, Two times a day and prn, First dose on Wed08/16/18 at 2205, Until Discontinued, 10 mL, Flush IV line as scheduled and as often as necessary before and after meds., sodium chloride 0.9% flush (adult) 10 mL Given 08/18/2018 7:52 AM CDT 10 mL 10 mL, IV, Two times a day and prn, First dose on Wed08/16/18 at 2205, Until Discontinued, 10 mL, Flush IV line as scheduled and as often as necessary before and after meds., Given 08/17/2018 7:58 PM CDT 10 mL ticagrelor (BRILINTA) tablet 90 mg 90 mg, Oral, Two times a day, First dose on Wed08/19/18 at 0900, Until Discontinued, If medication is crushed, must be mixed with water for administration., Medication Order MAR Action Action Date Dose Rate Site aspirin chewable tablet 324 mg Given 08/17/2018 12:53 AM CDT 324 mg 324 mg, Oral, One time, 1 dose, Wed08/16/18 at 2305, If not already administered, aspirin tablet 325 mg Given 08/17/2018 11:15 AM CDT 325 mg 325 mg, Oral, One time, 1 dose, Wed08/17/18 at 1015, Prep Orders (Cath) if inpatient - floor RN to release, Patient to receive 325 mg aspirin prior to procedure If patient currently taking aspirin at home and has not taken their dose today prior to procedure: hold this dose and administer 325 mg, clopidogrel (PLAVIX) tablet 75 mg Given 08/17/2018 10:04 AM CDT 75 mg 75 mg, Oral, DAILY, First dose on Wed08/17/18 at 0900, Until Discontinued clopidogrel (PLAVIX) tablet 75 mg Given 08/18/2018 7:51 AM CDT 75 mg 75 mg, Oral, Daily, 365 doses, First dose on Wed08/18/18 at 0900, Last dose on Wed08/17/19 at 0900, Post-Procedure (Cath) fentaNYL 250 mcg/5 mL preservative free Given 08/17/2018 4:44 PM CDT 50 mcg injection solution 12.5-300 mcg 12.5-300 mcg, IV, Administer in Cardiac Filenet Architect, 1 dose, Wed08/17/18 at 1610, 10 mL, Under the direction of the provider in CCL. Do not give on the floor. For cardiac catheterization sedation under direction provider privileged to perform sedation., Given 08/17/2018 4:11 PM CDT 50 mcg hEParin (50 units/mL) in D5W New Bag 08/17/2018 7:04 AM 19 Units/kg/hr 36.6 mL/hr premixed IV solution CDT (STANDARD-weight based) 0-50 Units/kg/hr 96.3 kg (0-96.3 mL/hr), IV, at 0-96.3 mL/hr, Titrate, Starting Wed08/16/18 at 2330, Until 4/24/19 at 1802, 500 mL, Start initial infusion at 15 units/kg/hr. Notify physician if initial infusion exceeds 1,500 units/hr. Adjust heparin infusion based on sliding scale: * aPTT less than 60 sec ------ Give 70 units/kg IV bolus and add 4 units/kg/hr to current rate * aPTT 60-69.9 sec Give 35 units/kg IV bolus and add 2 units/kg/hr to current rate * aPTT 70-120.9 sec No change (therapeutic) * aPTT 121-135.9 sec Subtract 2 units/kg/hr from current rate * aPTT 136-149.9 sec --------- Hold heparin for 1 hour and subtract 3 units/kg/hr from current rate * aPTT 150 sec or greater - Redraw STAT aPTT and hold heparin. Draw hourly aPTT using routine specified time until less than 150 sec, then restart heparin infusion at 3 units/kg/hr less than the previous rate, give NO BOLUS and resume every 6 hour aPTT. AFTER PROCEDURE: When restarting infusion after it's been held for a procedure, restart infusion at "starting" dose of 15 units/kg/hr and follow titration orders. IF infusion was running at less than 15 units/kg/hr prior to procedure, restart at that rate and follow titration orders., New Bag 08/17/2018 12:56 AM CDT 15 Units/kg/hr 28.9 mL/hr heparin (porcine) (5000 units/1 mL) IV Given 08/17/2018 7:03 AM CDT 6,700 Units dose 6,700 Units 6,700 Units (rounded from 6,741 Units=70 Units/kg 96.3 kg), IV, PRN per parameter, Starting Wed08/16/18 at 2228, Until Wed08/17/18 at 1802, other (Specify), * aPTT less than 60 seconds - Give 70 units/kg IV bolus and add 4 units/kg/hr to current rate of infusion, 2 mL, Supplemental bolus doses based on aPTT: * aPTT less than 60 seconds - Give 70 units/kg IV bolus and add 4 units/kg/hr to current rate of infusion. * aPTT 60 to 69.9 seconds - Give 35 units/kg IV bolus and add 2 units/kg/hr to current rate of infusion. Round to the nearest 100 units up to a maximum bolus of heparin 7500 units , heparin (porcine) injection solution Given 08/17/2018 4:31 PM CDT 5,000 Units 0-12,000 Units 0-12,000 Units, IV, Administer in Cardiac Filenet Architect, 1 dose, Wed08/17/18 at 1635, 12 mL, Under the direction of the provider in CCL. Do not give on the floor., iohexol (OMNIPAQUE) 350 mg/mL solution 90 mL Given 08/17/2018 4:56 PM CDT 90 mL 90 mL, Intra-arterial, One time, 1 dose, Wed08/17/18 at 1700, 100 mL lidocaine PF (XYLOCAINE-MPF) 1 % preservative Given 08/17/2018 4:12 PM CDT 9 mL free injection solution 0-40 mL 0-40 mL, Subcutaneous, Administer in Cardiac [facility], 1 dose, Wed08/17/18 at 1610, 60 mL, Given by provider in CCL. Do not give on the floor., metoprolol tartrate (LOPRESSOR) tablet 12.5 Given 08/18/2018 7:51 AM CDT 12.5 mg mg 12.5 mg, Oral, Two times a day, First dose on Wed08/16/18 at 2235, Until Discontinued, Hold for SBP less than 90 Hold for HR less than 60, Given 08/17/2018 7:57 PM CDT 12.5 mg Given 08/17/2018 10:04 AM CDT 12.5 mg midazolam (VERSED) injection solution 0.5-10 Given 08/17/2018 4:33 PM CDT 1 mg mg 0.5-10 mg, IV, Administer in Cardiac [employer], 1 dose, Wed08/17/18 at 1610, 10 mL, For cardiac catheterization sedation under direction provider privileged to perform sedation. Do not give on the floor., Given 08/17/2018 4:11 PM CDT 1 mg simvastatin (ZOCOR) tablet 80 mg Given 08/17/2018 1:30 AM CDT 80 mg 80 mg, Oral, One time a day with evening meal, First dose on Wed08/17/18 at 0110, Until Discontinued ticagrelor (BRILINTA) tablet 180 mg Given 08/18/2018 10:46 AM CDT 180 mg 180 mg, Oral, One time, 1 dose, Amirah 08/18/18 at 1045, If medication is crushed, must be mixed with water for administration., documented in this encounter
== END 2018-08-16 18:55 ==
LOC: CC.ED 10:07
DX: I21.9 Acute myocardial infarction, unspecified (principal); E78.00 Pure hypercholesterolemia, unspecified; I10 Essential (primary) hypertension; E11.9 Type 2 diabetes mellitus without complications; E03.9 Hypothyroidism, unspecified; Z79.899 Other long term (current) drug therapy
CPT/HCPCS: 36415; 71046; 80053; 82550; 83615; 84484; 85025; 85610; 85730; 93005; 93010; 96365; 96366; 96375; 99285-25; A9270-GY; J1644

== ENCOUNTER 2022-01-06 08:35 | Emergency (ER) | payer MEDICARE, BC ==
[2022-01-06] MEDS: EPINEPHrine 1:10,000 1 MG/10 ML Syringe IVPUSH ONE ×2 (08:41→13:20)
== END 2022-01-06 11:10 | disposition expired ==
LOC: CC.ED 08:35
DX: I46.9 Cardiac arrest, cause unspecified (principal); I10 Essential (primary) hypertension; E11.9 Type 2 diabetes mellitus without complications
CPT/HCPCS: 92950; 99285-25; J0171